=== PATIENT | male | born 1935 | race Caucasian/White ===

== ENCOUNTER 2018-06-06 20:32 | Emergency (ER) | payer MEDICARE, OTHER ==
[~2018-06-06 20:32] MED LIST: EPINEPHrine 0.1 MG/ML SYG
== END 2018-06-07 02:05 | disposition expired ==
LOC: E/R 20:32
DX: I46.9 Cardiac arrest, cause unspecified (principal); I10 Essential (primary) hypertension; Z86.73 Personal history of transient ischemic attack (TIA), and cerebral infarction without residual deficits
CPT/HCPCS: 92950; 99285-25